=== PATIENT | male | born 1955 | race African-American/Black ===

== ENCOUNTER → 2017-06-24 | Day surgery (SDC) | payer OTHER ==
[~2017-06-24] MED LIST: FLUT16SP NS; HYDROmorphone 2 MG/ML VIAL IV PRN; IV RINGERS,LACTATED 1000ML 1,000 ML IV SCH; LIDOCAINE 1% 1 ML SYRINGE. ID PRN; LISI1TAB7 PO; MORPHINE SULFATE 2 MG/ML DISP.SYRIN. IV PRN; MULT1TAB52 PO; OMEG1CAP27 PO; ONDANSETRON PF 4 MG/2 ML VIAL. IV PRN; PROCHLORPERAZINE 10 MG/2 ML VIAL. IV PRN; PROPOFOL 20 ML IV ONE; SIMV40TA3 PO; TEST200V3 IM; UBID10CA5 PO; fentaNYL PF VIAL 100 MCG/2 ML VIAL IV PRN
[2017-06-24 13:14] VITALS: BP 102/58
== END | disposition home or self-care (01) ==
LOC: SURG 11:52
PROVIDERS: ATTEND Surgery
DX: Z12.11 Encounter for screening for malignant neoplasm of colon (principal); E78.00 Pure hypercholesterolemia, unspecified; I10 Essential (primary) hypertension; Z72.89 Other problems related to lifestyle; Z98.890 Other specified postprocedural states
CPT/HCPCS: 45378; J2704